=== PATIENT | male | born 1970 | race Caucasian/White ===

== ENCOUNTER 2018-10-31 09:03 | Outpatient (CLI) | payer OTHER | END 2018-10-31 09:17 | disposition home or self-care (01) | LOC: LAB 09:03 | DX: R50.81 Fever presenting with conditions classified elsewhere (principal); R82.90 Unspecified abnormal findings in urine; R74.8 Abnormal levels of other serum enzymes; E78.70 Disorder of bile acid and cholesterol metabolism, unspecified; R31.29 Other microscopic hematuria; R73.09 Other abnormal glucose; R94.6 Abnormal results of thyroid function studies; F17.219 Nicotine dependence, cigarettes, with unspecified nicotine-induced disorders ==

== ENCOUNTER 2018-11-18 10:13 | Outpatient (CLI) | payer OTHER | END 2018-11-18 14:33 | disposition home or self-care (01) | LOC: LAB 10:13 | DX: M25.521 Pain in right elbow (principal) ==

== ENCOUNTER 2022-10-12 09:17 | Outpatient (CLI) | payer OTHER | END 2022-10-12 09:30 | disposition home or self-care (01) | LOC: SONOGRAMA 09:17 | PROVIDERS: ATTEND Specialist | DX: R74.8 Abnormal levels of other serum enzymes (principal) ==

== ENCOUNTER 2022-10-19 13:58 | Outpatient (CLI) | payer OTHER | END 2022-10-19 14:14 | disposition home or self-care (01) | LOC: LAB 13:58 | PROVIDERS: ATTEND Internal Medicine Gastroenterology | DX: B19.20 Unspecified viral hepatitis C without hepatic coma (principal); R74.01 Elevation of levels of liver transaminase levels ==

== ENCOUNTER 2022-12-04 08:14 | Outpatient (CLI) | payer OTHER | END 2022-12-04 08:15 | disposition home or self-care (01) | LOC: LAB 08:14 | PROVIDERS: ATTEND Specialist | DX: E78.5 Hyperlipidemia, unspecified (principal); I10 Essential (primary) hypertension; E03.5 Myxedema coma; E74.39 Other disorders of intestinal carbohydrate absorption ==

== ENCOUNTER 2023-04-02 07:50 | Outpatient (CLI) | payer OTHER | END 2023-04-02 07:52 | disposition home or self-care (01) | LOC: LAB 07:50 | DX: R07.89 Other chest pain (principal); R74.01 Elevation of levels of liver transaminase levels ==

== ENCOUNTER 2023-06-04 09:02 | Outpatient (CLI) | payer OTHER | END 2023-06-04 09:06 | disposition home or self-care (01) | LOC: LAB 09:02 | DX: E78.5 Hyperlipidemia, unspecified (principal); I10 Essential (primary) hypertension; E03.5 Myxedema coma; E74.39 Other disorders of intestinal carbohydrate absorption; A64 Unspecified sexually transmitted disease; K75.9 Inflammatory liver disease, unspecified ==

== ENCOUNTER 2023-10-01 08:02 | Outpatient (CLI) | payer OTHER ==
[2023-10-01 08:47] LABS: HEMATOCRIT 41.4 % (39.0-48.0); HEMOGLOBIN 14.2 g/dL (13-16.00); MEAN CORPUSCULAR HEMOGLOBIN 29.8 pg (27.00-32.0); MEAN CORPUSCULAR HGB CONC 34.2 g/dl (32.0-36.0); PLATELET COUNT 325 K/uL (150-450); RED BLOOD COUNT 4.76 M/uL (4.00-6.00); RED CELL DISTRIBUTION WIDTH 13.6 % (11.5-14.5)
[2023-10-01 09:20] LABS: ALBUMIN 3.9 gm/dL (3.4-5.0); BILIRUBIN TOTAL 0.93 mg/dL (0.3-1.2); CALCIUM 9.4 mg/dL (8.5-10.1); CHOL HDL RATIO 3.5 (0-5.0); CREATININE SERUM 1.22 mg/dL (0.70-1.30); GFR 61.67; GLOBULINA 3.3 G/DL (2.4-3.5); POTASSIUM 5.13 mEq/L (3.5-5.1); T4 TOTAL 10.53 UG/DL (4.5-12.1); TOTAL PROTEIN 7.2 gm/dL (6.4-8.2); TSH 2.49 uIU/mL (0.358-3.74)
[2023-10-01 09:21] LABS: PH,URINE 5.5 (5.0-8.0); URINE APPEARANCE Clear; URINE BILIRRUBIN Negative (NEGATIVE); URINE BLOOD Negative; URINE COLOR Yellow; URINE GLUCOSE Negative (NEGATIVE); URINE LEUKOCYTE Negative; URINE NITRATE Negative; URINE PROTEIN Negative (NEGATIVE); URINE UROBILINOGEN 0.2 E.U./dl
[2023-10-01 09:23] LABS: URINE BACTERIA 7.5 uL (0.0-1933); URINE WBC 1.9 uL (0.0-23.2)
== END 2023-10-01 08:08 | disposition home or self-care (01) ==
LOC: LAB 08:02
DX: I10 Essential (primary) hypertension (principal); E78.5 Hyperlipidemia, unspecified; E03.5 Myxedema coma; E74.39 Other disorders of intestinal carbohydrate absorption

== ENCOUNTER → 2023-10-28 09:15 | Outpatient (CLI) | payer OTHER ==
[2023-10-28 10:13] LABS: HEMOGLOBIN 14.7 g/dL (13-16.00); MEAN CELL VOLUME 86.9 fL (80.0-100.00); MEAN CORPUSCULAR HEMOGLOBIN 29.7 pg (27.00-32.0); MEAN CORPUSCULAR HGB CONC 34.2 g/dl (32.0-36.0); PLATELET COUNT 257 K/uL (150-450); RED BLOOD COUNT 4.95 M/uL (4.00-6.00); RED CELL DISTRIBUTION WIDTH 13.9 % (11.5-14.5)
[2023-10-28 10:38] LABS: ALBUMIN 4.1 gm/dL (3.4-5.0); BILIRUBIN TOTAL 1.19 mg/dL (0.3-1.2); BILIRUBIN,CONJUGATED 0.2 mg/dL (0.0-0.2); BILIRUBIN,UNCONJUGATED 0.99 mg/dL (0.0-0.6)
== END | disposition home or self-care (01) ==
LOC: LAB 09:15
PROVIDERS: ATTEND Internal Medicine Gastroenterology
DX: R07.89 Other chest pain (principal); Z86.010 Personal history of colon polyps; R74.01 Elevation of levels of liver transaminase levels

== ENCOUNTER 2024-04-01 09:06 | Outpatient (CLI) | payer OTHER ==
[2024-04-01 10:08] LABS: HEMATOCRIT 42.1 % (39.0-48.0); HEMOGLOBIN 14.3 g/dL (13-16.00); MEAN CELL VOLUME 85.6 fL (80.0-100.00); MEAN CORPUSCULAR HEMOGLOBIN 29.1 pg (27.00-32.0); PLATELET COUNT 203 K/uL (150-450); RED BLOOD COUNT 4.92 M/uL (4.00-6.00); RED CELL DISTRIBUTION WIDTH 13.9 % (11.5-14.5)
[2024-04-01 10:13] LABS: URINE APPEARANCE Clear; URINE BILIRRUBIN Negative (NEGATIVE); URINE BLOOD Negative; URINE COLOR Yellow; URINE GLUCOSE Negative (NEGATIVE); URINE LEUKOCYTE Negative; URINE NITRATE Negative; URINE PROTEIN Negative (NEGATIVE); URINE UROBILINOGEN 0.2 E.U./dl
[2024-04-01 10:32] LABS: URINE BACTERIA 1.2 uL (0.0-1933); URINE EPITHELIAL CELLS 0.1 uL (0.0-38.8); URINE RBC 0.3 uL (0.0-20.8); URINE WBC 0.7 uL (0.0-23.2)
[2024-04-01 11:27] LABS: ALBUMIN 4.1 gm/dL (3.4-5.0); BILIRUBIN TOTAL 0.64 mg/dL (0.3-1.2); CALCIUM 9.3 mg/dL (8.5-10.1); CHOL HDL RATIO 4.5 (0-5.0); CREATININE SERUM 1.03 mg/dL (0.70-1.30); GFR 74.98; POTASSIUM 5.08 mEq/L (3.5-5.1); T4 TOTAL 10.18 UG/DL (4.5-12.1); TOTAL PROTEIN 7.1 gm/dL (6.4-8.2); TSH 2.83 uIU/mL (0.358-3.74)
[2024-04-02 07:06] LABS: hav igm Negative (Negative); hcv Non Reactive (Non Reactive); hep b c Negative (Negative)
[2024-04-02 09:10] LABS: HSV I IGG TYPE SPECIFIC > 62.20 index (0.00-0.90)
[2024-04-02 23:05] LABS: chla t Negative (Negative); neiss Negative (Negative)
== END 2024-04-01 14:26 | disposition home or self-care (01) ==
LOC: LAB 09:06
DX: E78.2 Mixed hyperlipidemia (principal); I10 Essential (primary) hypertension; E03.5 Myxedema coma; E74.39 Other disorders of intestinal carbohydrate absorption; A64 Unspecified sexually transmitted disease; K75.9 Inflammatory liver disease, unspecified

== ENCOUNTER 2024-08-05 07:23 | Outpatient (CLI) | payer OTHER ==
[2024-08-05 08:29] LABS: PH,URINE 5.5 (5.0-8.0); URINE APPEARANCE Clear; URINE BILIRRUBIN Negative (NEGATIVE); URINE BLOOD Negative; URINE COLOR Yellow; URINE GLUCOSE Negative (NEGATIVE); URINE KETONE Negative (NEGATIVE); URINE LEUKOCYTE Negative; URINE NITRATE Negative; URINE PROTEIN Negative (NEGATIVE); URINE UROBILINOGEN 0.2 E.U./dl
[2024-08-05 08:35] LABS: URINE BACTERIA 1.2 uL (0.0-1933); URINE EPITHELIAL CELLS 0.6 uL (0.0-38.8); URINE RBC 0.3 uL (0.0-20.8); URINE WBC 0.4 uL (0.0-23.2)
[2024-08-05 08:39] LABS: HEMATOCRIT 45.5 % (39.0-48.0); MEAN CELL VOLUME 88.2 fL (80.0-100.00); MEAN CORPUSCULAR HEMOGLOBIN 29.1 pg (27.00-32.0); PLATELET COUNT 226 K/uL (150-450); RED BLOOD COUNT 5.16 M/uL (4.00-6.00); RED CELL DISTRIBUTION WIDTH 13.7 % (11.5-14.5)
[2024-08-05 09:41] LABS: ALBUMIN 3.9 gm/dL (3.4-5.0); BILIRUBIN TOTAL 0.64 mg/dL (0.3-1.2); CALCIUM 9.1 mg/dL (8.5-10.1); CHOL HDL RATIO 3.5 (0-5.0); CREATININE SERUM 1.2 mg/dL (0.70-1.30); GFR 62.63; GLOBULINA 3.1 G/DL (2.4-3.5); POTASSIUM 5.1 mEq/L (3.5-5.1); T4 TOTAL 10.12 UG/DL (4.5-12.1); TSH 2.68 uIU/mL (0.358-3.74)
== END 2024-08-05 07:45 | disposition home or self-care (01) ==
LOC: LAB 07:23
DX: R10.0 Acute abdomen (principal); E78.5 Hyperlipidemia, unspecified; E03.5 Myxedema coma

== ENCOUNTER 2024-11-02 07:50 | Outpatient (CLI) | payer OTHER ==
[2024-11-02 09:08] LABS: URINE APPEARANCE Clear; URINE BILIRRUBIN Negative (NEGATIVE); URINE BLOOD Negative; URINE COLOR Yellow; URINE GLUCOSE Negative (NEGATIVE); URINE KETONE Negative (NEGATIVE); URINE LEUKOCYTE Negative; URINE NITRATE Negative; URINE PROTEIN Negative (NEGATIVE); URINE UROBILINOGEN 0.2 E.U./dl
[2024-11-02 09:21] LABS: HEMATOCRIT 44.4 % (39.0-48.0); HEMOGLOBIN 14.6 g/dL (13-16.00); MEAN CELL VOLUME 87.5 fL (80.0-100.00); MEAN CORPUSCULAR HEMOGLOBIN 28.8 pg (27.00-32.0); MEAN CORPUSCULAR HGB CONC 32.9 g/dl (32.0-36.0); PLATELET COUNT 238 K/uL (150-450); RED BLOOD COUNT 5.07 M/uL (4.00-6.00); RED CELL DISTRIBUTION WIDTH 13.6 % (11.5-14.5)
[2024-11-02 09:48] LABS: URINE BACTERIA 1.2 uL (0.0-1933); URINE EPITHELIAL CELLS 0.4 uL (0.0-38.8); URINE RBC 0.1 uL (0.0-20.8); URINE WBC 1.7 uL (0.0-23.2)
[2024-11-02 10:09] LABS: BILIRUBIN TOTAL 0.68 mg/dL (0.3-1.2); CHOL HDL RATIO 3.4 (0-5.0); CREATININE SERUM 1.13 mg/dL (0.70-1.30); GFR 67.13; GLOBULINA 2.9 G/DL (2.4-3.5); POTASSIUM 5.01 mEq/L (3.5-5.1); T4 TOTAL 9.71 UG/DL (4.5-12.1); TOTAL PROTEIN 6.9 gm/dL (6.4-8.2); TSH 3.5 uIU/mL (0.358-3.74)
== END 2024-11-02 07:51 | disposition home or self-care (01) ==
LOC: LAB 07:50
PROVIDERS: ATTEND Specialist
DX: E78.5 Hyperlipidemia, unspecified (principal); E03.5 Myxedema coma

== ENCOUNTER 2025-03-09 07:33 | Outpatient (CLI) | payer OTHER ==
[2025-03-09 08:21] LABS: URINE APPEARANCE Clear; URINE BILIRRUBIN Negative (NEGATIVE); URINE BLOOD Negative; URINE COLOR Yellow; URINE GLUCOSE Negative (NEGATIVE); URINE KETONE Negative (NEGATIVE); URINE LEUKOCYTE Negative; URINE NITRATE Negative; URINE PROTEIN Negative (NEGATIVE); URINE UROBILINOGEN 0.2 E.U./dl
[2025-03-09 08:22] LABS: URINE BACTERIA 8.5 uL (0.0-1933); URINE WBC 1.8 uL (0.0-23.2)
[2025-03-09 08:25] LABS: URINE EPITHELIAL CELLS 1.1 uL (0.0-38.8); URINE RBC 1.3 uL (0.0-20.8)
[2025-03-09 08:26] LABS: BASO % 1.1 % (0.1-1.2); EOS # 0.17 (0.04-0.54); EOS % 3.1 % (0.7-7.0); HEMATOCRIT 45.6 % (40.1-51.0); LYMPH # 2.51 (1.18-3.74); LYMPH % 45.3 % (19.3-53.1); MEAN CORPUSCULAR HEMOGLOBIN 28.5 pg (25.6-32.2); MONO % 10.8 % (4.7-12.5); NEUT # 2.19 (1.56-6.13); NEUT % 39.5 % (34.0-71.1); PLATELET COUNT 270 K/uL (163-369); RED BLOOD COUNT 5.27 M/uL (4.63-6.08); RED CELL DISTRIBUTION WIDTH 13.1 % (11.6-14.4)
[2025-03-09 09:18] LABS: ALBUMIN 4.1 gm/dL (3.4-5.0); BILIRUBIN TOTAL 0.67 mg/dL (0.3-1.2); CALCIUM 9.2 mg/dL (8.5-10.1); CHOL HDL RATIO 4.2 (0-5.0); CREATININE SERUM 1.17 mg/dL (0.70-1.30); GFR 64.49; GLOBULINA 2.8 G/DL (2.4-3.5); POTASSIUM 4.37 mEq/L (3.5-5.1); T4 TOTAL 11.21 UG/DL (4.5-12.1); TOTAL PROTEIN 6.9 gm/dL (6.4-8.2)
[2025-03-09 09:20] LABS: TSH 4.94 uIU/mL (0.358-3.74)
== END 2025-03-09 07:43 | disposition home or self-care (01) ==
LOC: LAB 07:33
PROVIDERS: ATTEND Specialist
DX: I10 Essential (primary) hypertension (principal); E78.5 Hyperlipidemia, unspecified; E03.5 Myxedema coma

== ENCOUNTER 2025-07-07 09:15 | Outpatient (CLI) | payer OTHER ==
[2025-07-07 10:32] LABS: BASO % 1.3 % (0.1-1.2); EOS # 0.24 (0.04-0.54); EOS % 6.0 % (0.7-7.0); LYMPH # 2.08 (1.18-3.74); LYMPH % 52.4 % (19.3-53.1); MEAN PLATELET VOLUME 9.70 fl (9.4-12.4); MONO # 0.39 (0.24-0.82); MONO % 9.8 % (4.7-12.5); NEUT # 1.20 (1.56-6.13); NEUT % 30.2 % (34.0-71.1); RED CELL DISTRIBUTION WIDTH 13.0 % (11.6-14.4)
[2025-07-07 10:44] LABS: URINE APPEARANCE Clear; URINE BILIRRUBIN Negative (NEGATIVE); URINE BLOOD Negative; URINE COLOR Yellow; URINE GLUCOSE Negative (NEGATIVE); URINE KETONE Negative (NEGATIVE); URINE LEUKOCYTE Negative; URINE NITRATE Negative; URINE PROTEIN Negative (NEGATIVE); URINE UROBILINOGEN 1.0 E.U./dl
[2025-07-07 10:52] LABS: URINE BACTERIA 2.3 uL (0.0-1933); URINE CAST 0.00 uL (0.0-1.40); URINE EPITHELIAL CELLS 0.4 uL (0.0-38.8); URINE RBC 1.0 uL (0.0-20.8); URINE WBC 1.5 uL (0.0-23.2)
[2025-07-07 11:39] LABS: ALT/SGPT 45.0 U/L (12-78); AST/SGOT 22.0 U/L (15-37); BILIRUBIN TOTAL 0.93 mg/dL (0.3-1.2); BUN CREA RATIO 16.0 (7.0-25.0); CHOL HDL RATIO 3.8 (0-5.0); CREATININE SERUM 1.18 mg/dL (0.70-1.30); GFR 63.63; GLOBULINA 2.9 G/DL (2.4-3.5); GLUCOSE FASTING 110.0 mg/dL (65-100); HDL 62.0 mg/dl (40-60); LDL 146.0 mg/dl (0-130); OSMOLALITY SERUM 290.0 MOSM/KG (275-295); PHOSPHOKINASE CREATININE 123.0 U/L (39-308); T3 UPTAKE 31.0 % (33-40); T4 TOTAL 8.68 UG/DL (4.5-12.1); TSH 2.71 uIU/mL (0.358-3.74); VLDL 26.0 (0-39)
== END 2025-07-07 09:25 | disposition home or self-care (01) ==
LOC: LAB 09:15
PROVIDERS: ATTEND Specialist
DX: E78.5 Hyperlipidemia, unspecified (principal); I10 Essential (primary) hypertension; E03.5 Myxedema coma